=== PATIENT | female | born 1950 ===

== ENCOUNTER 2021-02-03 10:07 | Outpatient (CLI) | payer OTHER | END 2021-02-03 10:14 | disposition home or self-care (01) | LOC: MRI 10:07 | DX: R22.41 Localized swelling, mass and lump, right lower limb (principal) | CPT/HCPCS: 73718 ==

== ENCOUNTER 2021-04-14 13:42 | Outpatient (CLI) | payer OTHER | END 2021-04-14 13:47 | disposition home or self-care (01) | LOC: MAMO-SONO 13:42 | PROVIDERS: ATTEND Surgery | DX: R92.1 Mammographic calcification found on diagnostic imaging of breast (principal); N64.89 Other specified disorders of breast ==

== ENCOUNTER 2022-02-25 09:59 | Outpatient (CLI) | payer OTHER | END 2022-02-25 10:00 | disposition home or self-care (01) | LOC: SONOGRAMA 09:59 | PROVIDERS: ATTEND Internal Medicine Nephrology | DX: N18.32 Chronic kidney disease, stage 3b (principal) ==

== ENCOUNTER → 2022-04-21 | Outpatient (CLI) | payer OTHER | END | disposition home or self-care (01) | LOC: MAMO-SONO 11:41 | PROVIDERS: ATTEND Surgery | DX: Z12.31 Encounter for screening mammogram for malignant neoplasm of breast (principal); N60.11 Diffuse cystic mastopathy of right breast; N60.12 Diffuse cystic mastopathy of left breast ==

== ENCOUNTER 2024-06-07 11:54 | Outpatient (CLI) | payer OTHER | END 2024-06-07 12:04 | disposition home or self-care (01) | LOC: MAMO-SONO 11:54 | PROVIDERS: ATTEND Internal Medicine | DX: N64.4 Mastodynia (principal); Z12.31 Encounter for screening mammogram for malignant neoplasm of breast ==